=== PATIENT | male | born 1975 | race Caucasian/White ===

== ENCOUNTER 2016-12-19 15:55 | Emergency (ER) | payer OTHER, BC ==
[~2016-12-19] VITALS: Ht 162.6 cm; Wt 81.6 kg
[2016-12-19 17:33] VITALS: BP 119/87
[2016-12-19] MEDS ORDERED: CYCL10TA PO (17:42)
[2016-12-19] MEDS ORDERED: NAPR500T PO (17:42)
--- NOTE | 2016-12-19 17:47 | REP ---
Clinical: Trauma . Technique: AP, lateral, flexion/extension, swimmers bilateral oblique, and open-mouth views. Findings: Alignment and lordosis is maintained. There is no evidence for acute fracture / compression injury or subluxation. No significant degenerative changes are appreciated. Oblique views demonstrate patent neural foramen. Open mouth view demonstrates normal C1-C2 articulation and odontoid process. Impression: Normal cervical spine series. Signed by Willie Rowley MD 12/19/2016 05:38 P
== END 2016-12-19 17:57 | disposition home or self-care (01) ==
LOC: M ED 16:58
DX: S16.1XXA Strain of muscle, fascia and tendon at neck level, initial encounter (principal); V49.9XXA Car occupant (driver) (passenger) injured in unspecified traffic accident, initial encounter; Y92.410 Unspecified street and highway as the place of occurrence of the external cause; Y93.89 Activity, other specified; Y99.8 Other external cause status; F17.210 Nicotine dependence, cigarettes, uncomplicated

== ENCOUNTER 2018-04-18 11:26 | Emergency (ER) | payer OTHER, BC ==
[2018-04-18] MEDS: predniSONE 20 MG TAB PO (11:54)
[2018-04-18] MEDS: METHOCARBAMOL 500 MG TAB PO (11:55)
[2018-04-18] MEDS: PERCOCET 5MG/325MG TAB PO (11:55)
== END 2018-04-18 12:06 | disposition home or self-care (01) ==
LOC: M ED 11:26
DX: M54.41 Lumbago with sciatica, right side (principal); M54.42 Lumbago with sciatica, left side; F17.210 Nicotine dependence, cigarettes, uncomplicated
CPT/HCPCS: 99282

== ENCOUNTER 2018-06-09 12:14 | Emergency (ER) | payer BC, OTHER ==
[2018-06-09] MEDS: IBUPROFEN 800 MG TAB PO (15:01)
== END 2018-06-09 16:31 | disposition home or self-care (01) ==
LOC: M ED 12:14
DX: M16.12 Unilateral primary osteoarthritis, left hip (principal); Z72.0 Tobacco use
CPT/HCPCS: 72170

== ENCOUNTER 2018-09-15 19:30 | Emergency (ER) | payer BC ==
[~2018-09-15] VITALS: Ht 162.6 cm; Wt 81.8 kg
[~2018-09-15 19:30] MED LIST: CYCL10TA PO; IBUP80TA PO; NAPR-49 PO; PRED20TA PO; ZOFR4TAB14 PO
[2018-09-15] MEDS ORDERED: KEFL500C17 PO (21:12)
[2018-09-15] MEDS ORDERED: IBUP-1022 PO (21:12)
[2018-09-15 21:15] VITALS: BP 139/72
[2018-09-15] MEDS ORDERED: IBUPROFEN 800 MG TAB PO ONE (21:15)
[2018-09-15] MEDS ORDERED: CEPHALEXIN 500 MG CAP PO ONE (21:15)
== END 2018-09-15 21:20 | disposition home or self-care (01) ==
LOC: M ED 19:30
DX: J02.9 Acute pharyngitis, unspecified (principal); F17.200 Nicotine dependence, unspecified, uncomplicated

== ENCOUNTER 2018-11-30 16:49 | Emergency (ER) | payer BC, SELFPAY ==
[~2018-11-30] VITALS: Ht 162.6 cm; Wt 81.8 kg
[~2018-11-30 16:49] MED LIST changes: +IBUP-1022 PO; +KEFL500C17 PO; -NAPR-49 PO; +NAPR-50 PO
[2018-11-30 16:50] VITALS: BP 142/76
== END 2018-11-30 19:41 | disposition left against medical advice (07) ==
LOC: M ED 16:49
DX: Z53.21 Procedure and treatment not carried out due to patient leaving prior to being seen by health care provider (principal)

== ENCOUNTER 2019-01-22 14:33 | Emergency (ER) | payer OTHER, SELFPAY ==
[~2019-01-22] VITALS: Ht 162.6 cm; Wt 84.0 kg
[~2019-01-22 14:33] MED LIST changes: -NAPR-50 PO; +NAPR-837 PO
[2019-01-22] MEDS ORDERED: KETOROLAC 60 MG/2 ML VIAL (J1885) IM ONE (15:45)
[2019-01-22 16:55] VITALS: BP 107/71
[2019-01-22] MEDS ORDERED: NAPR-837 PO (17:02)
--- NOTE | 2019-01-22 17:16 | REP ---
LUMBOSACRAL SPINE SERIES: Five views of the lumbosacral spine are performed. There is no compression fracture. There is no malalignment with normal lumbar lordosis. There is no spondylolysis or spondylolisthesis. There is mild diffuse spurring. There is mild disc space narrowing at L5-S1. Posterior elements are intact. IMPRESSION: Mild degenerative changes. No fracture or dislocation. Electronically Signed by Omid Echeverria MD 01/23/2019 02:56 P
--- NOTE | 2019-01-22 17:17 | REP ---
THORACOLUMBAR SPINE: AP and lateral views of the thoracolumbar spine are performed. T7 through T12 are visualized and there is no evidence of fracture or dislocation involving these vertebral bodies. There is mild diffuse spurring. Posterior elements are intact. IMPRESSION: Degenerative changes without fracture or dislocation. Electronically Signed by Omid Echeverria MD 01/23/2019 02:57 P
== END 2019-01-22 17:16 | disposition home or self-care (01) ==
LOC: M ED 14:33
DX: S33.5XXA Sprain of ligaments of lumbar spine, initial encounter (principal); M51.34 Other intervertebral disc degeneration, thoracic region; M51.36 Other intervertebral disc degeneration, lumbar region; V53.5XXA Driver of pick-up truck or van injured in collision with car, pick-up truck or van in traffic accident, initial encounter; Y92.410 Unspecified street and highway as the place of occurrence of the external cause
CPT/HCPCS: 72080; 72110; 96372; 99283; J1885

== ENCOUNTER 2019-08-08 19:59 | Emergency (ER) | payer OTHER, SELFPAY ==
[~2019-08-08] VITALS: Ht 162.6 cm; Wt 81.8 kg
[2019-08-08 21:14] LABS: BASO # 0.1 10^3/uL (0.0-0.2); BASO % 0.7 % (0.0-1.0); EOS # 0.5 10^3/uL (0.0-0.5); EOS % 3.3 % (0.0-3.0); HEMATOCRIT 48.5 % (42.0-52.0); HEMOGLOBIN 16.1 g/dl (13.5-17.5); LYMPH # 2.7 10^3/uL (1.5-5.0); LYMPH % 20.1 % (24.0-44.0); MEAN CORPUSCULAR HEMOGLOBIN 29.7 pg (27.0-33.0); MEAN CORPUSCULAR HGB CONC 33.2 g/dl (32.0-36.5); MEAN CORPUSCULAR VOLUME 89.3 fl (80.0-96.0); MONO # 0.9 10^3/uL (0.0-0.8); MONO % 6.8 % (0.0-5.0); NEUTROPHILS # 9.3 10^3/uL (1.5-8.5); NEUTROPHILS % 68.6 % (36.0-66.0); PLATELET COUNT, AUTOMATED 213 10^3/uL (150-450); RED BLOOD COUNT 5.43 10^6/uL (4.30-6.10); WHITE BLOOD COUNT 13.6 10^3/uL (4.0-10.0)
[2019-08-08] MEDS ORDERED: KETOROLAC 60 MG/2 ML VIAL (J1885) IM ONE (22:00)
[2019-08-08] MEDS ORDERED: NORCO, ANEXSIA 5/325MG TABLET (HYDROcodone/ACETAMINOPHEN) PO ONE (22:30)
[2019-08-08] MEDS ORDERED: diazePAM 5 MG TAB PO ONE (22:30)
[2019-08-08] MEDS ORDERED: ISOVUE-370 76% 100ML VIAL (Q9967) As Ordered ONE (23:15)
--- NOTE | 2019-08-08 23:49 | REPVR ---
PROCEDURE INFORMATION: Exam: CT Pelvis With Contrast Exam date and time: 08/08/2019 11:38 PM Clinical history: 44 years old, male; Perianal pain; Additional info: Rectal pain TECHNIQUE: Imaging protocol: Computed tomography images of the pelvis with intravenous contrast. Radiation optimization: All CT scans at this facility use at least one of these dose optimization techniques: automated exposure control; mA and/or kV adjustment per patient size (includes targeted exams where dose is matched to clinical indication); or iterative reconstruction. Contrast material: ISOVUE 370; Contrast volume: 100 ml; Contrast route: IV; COMPARISON: CR Pelvis Ap ONLY 06/09/2018 3:12 PM FINDINGS: Stomach and bowel: Symmetric thickening of the rectal wall to the anal rectal junction may represent proctitis. Appendix: No evidence of appendicitis. Bladder: Normal. No mass. Reproductive: The prostate gland demonstrates moderate hyperplasia. Intraperitoneal space: Unremarkable. No free air. No significant fluid collection. Lymph nodes: Unremarkable. No enlarged lymph nodes. Bones/joints: Unremarkable. No acute fracture. No dislocation. Soft tissues: Small right inguinal hernia. IMPRESSION: 1. Moderate prostatic hyperplasia. 2. Symmetric thickening of the rectal wall to the anal rectal junction may represent proctitis. Electronically signed by: Leon Barreto On 08/08/2019 23:49:49 PM
[2019-08-09] MEDS ORDERED: CIPROFLOXACIN 500 MG TAB PO STA (00:03)
[2019-08-09] MEDS ORDERED: metroNIDAZOLE (FLAGYL) 500 MG TAB PO STA (00:03)
[2019-08-09] MEDS ORDERED: CIPR-249 PO (00:08)
[2019-08-09] MEDS ORDERED: FLAG500T PO (00:08)
[2019-08-09 00:25] VITALS: BP 146/82
--- NOTE | 2019-08-09 08:32 | REP ---
KUB: Single view. History: Rectal pain. Rule out foreign body. Comparison study: June 09, 2018. Findings: There are a few prostate calcifications again noted. Bowel gas pattern is normal. Flank stripes are intact. No mass, organomegaly, or other pathologic calcification is seen. There is no evidence of opaque foreign body. Impression: Dystrophic calcifications in the prostate. Normal bowel gas pattern. Unremarkable KUB. Electronically Signed by Michelet Staley MD 08/09/2019 08:23 A
== END 2019-08-09 00:26 | disposition home or self-care (01) ==
LOC: M ED 19:59
DX: K62.89 Other specified diseases of anus and rectum (principal); F17.210 Nicotine dependence, cigarettes, uncomplicated
CPT/HCPCS: 36415; 72193; 74018; 80047; 81001; 85025; 96372; 99283; G0103; J1885; Q9967

== ENCOUNTER 2019-12-09 22:31 | Emergency (ER) | payer SELFPAY ==
[~2019-12-09] VITALS: Ht 162.6 cm; Wt 90.0 kg
[~2019-12-09 22:31] MED LIST changes: +CIPR-249 PO; +FLAG500T PO
[2019-12-09] MEDS ORDERED: AUGM875T28 PO (23:08)
[2019-12-09] MEDS ORDERED: ACETAMINOPH W/CODEINE #3 TAB UD PO ONE (23:15)
[2019-12-09] MEDS ORDERED: IBUP80TA PO (23:23)
[2019-12-09 23:37] VITALS: BP 155/82
== END 2019-12-09 23:47 | disposition home or self-care (01) ==
LOC: M ED 22:31
DX: K02.9 Dental caries, unspecified (principal); K05.00 Acute gingivitis, plaque induced; K08.89 Other specified disorders of teeth and supporting structures; F17.200 Nicotine dependence, unspecified, uncomplicated

== ENCOUNTER → 2020-05-04 15:00 | Emergency (ER) | payer SELFPAY ==
[~2020-05-04 15:00] MED LIST changes: +AUGM875T28 PO; +CYCL-707 PO; -CYCL10TA PO
== END | disposition left against medical advice (07) ==
LOC: M ED 15:00
DX: Z53.21 Procedure and treatment not carried out due to patient leaving prior to being seen by health care provider (principal)

== ENCOUNTER 2022-10-20 15:21 | Emergency (ER) | payer SELFPAY ==
[~2022-10-20] VITALS: Ht 162.6 cm; Wt 89.0 kg
[2022-10-20 17:25] LABS: BASO # 0.1 10^3/uL (0.0-0.2); BASO % 0.6 % (0.0-1.0); EOS # 0.4 10^3/uL (0.0-0.5); EOS % 3.9 % (0.0-3.0); HEMATOCRIT 47.4 % (42.0-52.0); HEMOGLOBIN 15.6 g/dl (13.5-17.5); LYMPH # 2.8 10^3/uL (1.5-5.0); LYMPH % 24.4 % (24.0-44.0); MEAN CORPUSCULAR HEMOGLOBIN 29.5 pg (27.0-33.0); MEAN CORPUSCULAR HGB CONC 32.9 g/dl (32.0-36.5); MEAN CORPUSCULAR VOLUME 89.6 fl (80.0-96.0); MONO # 0.8 10^3/uL (0.0-0.8); MONO % 6.8 % (2.0-8.0); NEUTROPHILS # 7.2 10^3/uL (1.5-8.5); NEUTROPHILS % 63.8 % (36.0-66.0); PLATELET COUNT, AUTOMATED 224 10^3/uL (150-450); RED BLOOD COUNT 5.29 10^6/uL (4.30-6.10); WHITE BLOOD COUNT 11.3 10^3/uL (4.0-10.0)
[2022-10-20 17:50] LABS: LIPASE 48 U/L (12-53)
[2022-10-20 17:52] LABS: ALBUMIN 3.9 G/DL (3.2-5.2); ALKALINE PHOSPHATASE 80 U/L (46-116); ALT/SGPT 33 U/L (7.0-40); AST/SGOT 23 U/L (<34); BILIRUBIN,DIRECT < 0.1 MG/DL (<0.4); BILIRUBIN,TOTAL 0.2 MG/DL (0.3-1.2); BLOOD UREA NITROGEN 12 MG/DL (9-23); CALCIUM LEVEL 9.5 MG/DL (8.5-10.1); CARBON DIOXIDE LEVEL 30 MMOL/L (20-31); CHLORIDE LEVEL 109 MMOL/L (98-107); CK-MB VALUE MASS 2.3 NG/ML (<3.6); GLOMERULAR FILTRATION RATE > 60.0 (>60); GLUCOSE, FASTING 93 MG/DL (60-100); POTASSIUM SERUM 4.2 MMOL/L (3.5-5.1); SODIUM LEVEL 143 MMOL/L (136-145); TOTAL PROTEIN 6.9 G/DL (5.7-8.2)
[2022-10-20 17:54] LABS: CPK CREATINE PHOSPHOKINASE 139 U/L (46-171); MB/CK RELATIVE INDEX 1.65 (< OR =4)
[2022-10-20] MEDS ORDERED: ISOVUE-370 76% 100ML VIAL As Ordered ONE (18:04)
[2022-10-20 19:35] VITALS: BP 137/95
== END 2022-10-20 19:36 | disposition home or self-care (01) ==
LOC: M ED 15:21
DX: R11.0 Nausea (principal); R03.0 Elevated blood-pressure reading, without diagnosis of hypertension; I44.4 Left anterior fascicular block; F17.200 Nicotine dependence, unspecified, uncomplicated; F12.10 Cannabis abuse, uncomplicated

== ENCOUNTER 2022-12-30 20:03 | Emergency (ER) | payer SELFPAY ==
[~2022-12-30] VITALS: Ht 162.6 cm; Wt 85.6 kg
[2022-12-30 20:05] VITALS: BP 146/91
== END 2022-12-30 23:52 | disposition left against medical advice (07) ==
LOC: M ED 20:03
DX: Z53.21 Procedure and treatment not carried out due to patient leaving prior to being seen by health care provider (principal)

== ENCOUNTER 2023-01-07 13:37 | Emergency (ER) | payer OTHER, SELFPAY ==
[~2023-01-07] VITALS: Ht 162.6 cm; Wt 83.5 kg
[2023-01-07] MEDS ORDERED: AMOX875T2 PO (16:41)
[2023-01-07 16:46] VITALS: BP 135/87
== END 2023-01-07 16:48 | disposition home or self-care (01) ==
LOC: M ED 13:37
DX: J03.00 Acute streptococcal tonsillitis, unspecified (principal); H66.93 Otitis media, unspecified, bilateral; Z79.2 Long term (current) use of antibiotics

== ENCOUNTER 2024-07-13 17:45 | Emergency (ER) | payer MEDICAID, OTHER, SELFPAY ==
[~2024-07-13] VITALS: Ht 160 cm; Wt 91.6 kg
[~2024-07-13 17:45] MED LIST changes: +AMOX875T2 PO
[2024-07-13 20:03] LABS: BASO # 0.1 10^3/uL (0.0-0.2); BASO % 0.8 % (0.0-1.0); EOS # 0.8 10^3/uL (0.0-0.5); EOS % 8.2 % (0.0-3.0); HEMOGLOBIN 15.3 g/dl (13.5-17.5); LYMPH # 2.6 10^3/uL (1.5-5.0); LYMPH % 26.4 % (24.0-44.0); MEAN CORPUSCULAR HEMOGLOBIN 29.4 pg (27.0-33.0); MEAN CORPUSCULAR HGB CONC 34.8 g/dl (32.0-36.5); MEAN CORPUSCULAR VOLUME 84.5 fl (80.0-96.0); MONO # 0.9 10^3/uL (0.0-0.8); MONO % 8.9 % (2.0-8.0); NEUTROPHILS # 5.4 10^3/uL (1.5-8.5); PLATELET COUNT, AUTOMATED 201 10^3/uL (150-450); RED BLOOD COUNT 5.21 10^6/uL (4.30-6.10); WHITE BLOOD COUNT 9.8 10^3/uL (4.0-10.0)
[2024-07-13 20:23] LABS: BLOOD UREA NITROGEN 13 MG/DL (9-23); CALCIUM LEVEL 10.1 MG/DL (8.5-10.1); CARBON DIOXIDE LEVEL 28 MMOL/L (20-31); CHLORIDE LEVEL 109 MMOL/L (98-107); CK-MB VALUE MASS 2.3 NG/ML (<3.6); CREATININE FOR GFR 0.93 MG/DL (0.70-1.30); GLOMERULAR FILTRATION RATE > 60.0 (>60); GLUCOSE, FASTING 123 MG/DL (60-100); POTASSIUM SERUM 3.7 MMOL/L (3.5-5.1); SODIUM LEVEL 143 MMOL/L (136-145)
[2024-07-13 20:30] LABS: CPK CREATINE PHOSPHOKINASE 257 U/L (46-171); MB/CK RELATIVE INDEX 0.89 (< OR =4)
[2024-07-13 22:17] VITALS: TEMP 97
[2024-07-14] MEDS ORDERED: FLON27.5 NARES (00:42)
[2024-07-14] MEDS ORDERED: NAPR-837 PO (00:42)
[2024-07-14 00:47] VITALS: BP 139/94; O2SAT 96
[2024-07-14] MEDS: NAPROXEN 250 MG TAB PO ONE (00:48)
== END 2024-07-14 00:55 | disposition home or self-care (01) ==
LOC: M ED 17:45
DX: R51.9 Headache, unspecified (principal); F17.200 Nicotine dependence, unspecified, uncomplicated; F12.10 Cannabis abuse, uncomplicated; Z79.1 Long term (current) use of non-steroidal anti-inflammatories (NSAID); Z79.899 Other long term (current) drug therapy